=== PATIENT | female | born 1995 | race Caucasian/White ===

== ENCOUNTER 2024-02-04 14:59 | Inpatient (IN) | payer BC, MEDICAID ==
[~2024-02-04] VITALS: Ht 195.6 cm; Wt 77.1 kg
[2024-02-04] MEDS ORDERED: HYDR-4075 PO (15:21)
[2024-02-04] MEDS ORDERED: ONDANSETRON 4 MG/2 ML VIAL ONE (15:26)
[2024-02-04] MEDS ORDERED: HYDROMORPHONE 1 MG/1 ML DISP.SYRIN ONE ×3 (15:26→18:58)
[2024-02-04] MEDS: ONDANSETRON 4 MG/2 ML VIAL IV ONE (15:27)
[2024-02-04] MEDS: HYDROMORPHONE 1 MG/1 ML DISP.SYRIN IV ONE ×3 (15:27→18:59)
[2024-02-04 15:32] LABS: BASOPHILS % (AUTO) 0.3 % (0.0-2.0); EOSINOPHILS % (AUTO) 0.9 % (0.0-7.0); HEMATOCRIT 50.9 % (31.2-41.9); HEMOGLOBIN 17.1 g/dL (10.9-14.3); LYMPHOCYTES # (AUTO) 1.9 K/uL (0.8-4.8); MEAN CORPUSCULAR HEMOGLOBIN 28.7 uug (24.7-32.8); MEAN CORPUSCULAR HGB CONC 34 g/dL (32.3-35.6); MEAN CORPUSCULAR VOLUME 85.7 fL (75.5-95.3); MONOCYTES # (AUTO) 0.7 K/uL (0.1-1.30); MONOCYTES % (AUTO) 13.9 % (0.0-11.0); NEUTROPHILS # (AUTO) 2.3 K/uL (1.8-8.9); NEUTROPHILS % (AUTO) 46.9 % (38.5-71.5); PLATELET COUNT (AUTO) 189 K/uL (179-408); RED BLOOD CELL COUNT(AUTO) 5.95 MIL/uL (3.63-4.92); RED CELL DISTRIBUTION WIDTH 13.4 % (12.3-17.7); WHITE BLOOD COUNT (AUTO) 4.9 K/uL (3.8-11.8)
[2024-02-04 15:33] LABS: DIFFERENTIAL COMMENT 1
[2024-02-04] MEDS: IV NORMAL SALINE 1000 ML BAG IV ONE ×2 (15:35→18:59)
[2024-02-04] MEDS ORDERED: diphenhydrAMINE 50 MG/1 ML VIAL ONE (15:37)
[2024-02-04] MEDS ORDERED: LORAZEPAM 2 MG/1 ML VIAL ONE (15:38)
[2024-02-04 15:42] LABS: CALCIUM 9.2 mg/dL (8.5-10.1); CARBON DIOXIDE 19 mmol/L (21-32); CHLORIDE 96 mmol/L (98-107); CREATININE 1.1 mg/dL (0.6-1.3); GLUCOSE 96 mg/dL (74-106); POTASSIUM 3.3 mmol/L (3.5-5.1); SODIUM SERUM 137 mmol/L (136-145); UREA NITROGEN, BLOOD 13 mg/dL (7-18)
[2024-02-04] MEDS: LORAZEPAM 2 MG/1 ML VIAL IV ONE (15:44)
[2024-02-04] MEDS: diphenhydrAMINE 50 MG/1 ML VIAL IV ONE (15:44)
[2024-02-04 15:52] LABS: PREGNANCY TEST SERUM QUAN < 1 miul/L (0-6)
[2024-02-04 15:55] LABS: ALANINE AMINOTRANSFERASE 20 U/L (14-59); ALBUMIN 3.9 g/dL (3.4-5.0); ALKALINE PHOSPHATASE 83 U/L (50-136); ASPARTATE AMINOTRANSFERASE 25 U/L (15-37); BILIRUBIN,DIRECT 0.3 mg/dL (0.0-0.2); BILIRUBIN,TOTAL 0.7 mg/dL (0.2-1.0); LIPASE 34 U/L (16-77); TOTAL PROTEIN, SERUM 8.4 g/dL (6.4-8.2)
[2024-02-04] MEDS ORDERED: AZITHROMYCIN 250 MG TABLET ONE (18:03)
[2024-02-04] MEDS ORDERED: CEFTRIAXONE /D5W 50ML IVPB **ER PYXIS IV ONE (18:03)
[2024-02-04] MEDS: AZITHROMYCIN 250 MG TABLET PO ONE (18:49)
[2024-02-04] MEDS: CEFTRIAXONE 1 G in IV DEXTROSE 5% 50 ML IV ONE (18:49)
[2024-02-04] MEDS ORDERED: REMEDY ESSENTIAL ZINC PASTE 113 GM TP PRN (20:00)
[2024-02-04] MEDS ORDERED: IV NS 1000 ML 1,000 ML IV PRN (20:00)
[2024-02-04] MEDS ORDERED: ACETAMINOPHEN 325 MG TABLET ONE (21:24)
[2024-02-04] MEDS: ACETAMINOPHEN 325 MG TABLET PO PRN (21:26)
[2024-02-04] MEDS ORDERED: METRONIDAZOLE 500 MG/NS 100ML 100 ML IV ONE (21:29)
[2024-02-04] MEDS: METRONIDAZOLE 500 MG/NS 100ML 500 MG in PREMIXED 1 EACH IV SCH (21:39)
[2024-02-04] MEDS ORDERED: levoFLOXacin 500 MG/D5W 100 ML ONE (23:01)
[2024-02-04] MEDS: levoFLOXacin 500 MG/D5W 500 MG in PREMIXED 1 EACH IV SCH (23:08)
[2024-02-04] MEDS: ONDANSETRON 4 MG/2 ML VIAL IV PRN (23:09)
[2024-02-04] MEDS: HYDROMORPHONE 1 MG/1 ML DISP.SYRIN IV PRN (23:24)
[2024-02-05] MEDS: GUAIFENESIN/DEXTROMETHORPHAN 5 ML UDC PO PRN (03:16)
[2024-02-05 03:45] VITALS: BP 142/61; TEMP 97.8; O2SAT 98
[2024-02-05 05:33] VITALS: BP 128/91; TEMP 97.8; O2SAT 98
[2024-02-05 06:19] VITALS: BP 128/91; TEMP 97.8; O2SAT 98
[2024-02-05 06:26] LABS: BASOPHILS % (AUTO) 0.4 % (0.0-2.0); EOSINOPHILS % (AUTO) 0.6 % (0.0-7.0); HEMATOCRIT 38.1 % (31.2-41.9); HEMOGLOBIN 13.1 g/dL (10.9-14.3); LYMPHOCYTES # (AUTO) 1.7 K/uL (0.8-4.8); LYMPHOCYTES % (AUTO) 55.1 % (20.5-51.5); MEAN CORPUSCULAR HEMOGLOBIN 28.9 uug (24.7-32.8); MEAN CORPUSCULAR HGB CONC 35 g/dL (32.3-35.6); MEAN CORPUSCULAR VOLUME 83.8 fL (75.5-95.3); MONOCYTES # (AUTO) 0.5 K/uL (0.1-1.30); NEUTROPHILS # (AUTO) 0.9 K/uL (1.8-8.9); NEUTROPHILS % (AUTO) 27.9 % (38.5-71.5); PLATELET COUNT (AUTO) 159 K/uL (179-408); RED BLOOD CELL COUNT(AUTO) 4.55 MIL/uL (3.63-4.92); WHITE BLOOD COUNT (AUTO) 3.1 K/uL (3.8-11.8)
[2024-02-05 06:43] LABS: CALCIUM 7.4 mg/dL (8.5-10.1); CREATININE 0.7 mg/dL (0.6-1.3); DIFFERENTIAL COMMENT 1; MAGNESIUM 1.6 mg/dL (1.8-2.4); PHOSPHOROUS 2.2 mg/dL (2.5-4.9); POTASSIUM 3.6 mmol/L (3.5-5.1)
[2024-02-05] MEDS: PANTOPRAZOLE SODIUM 40 MG VIAL IV SCH (08:31)
[2024-02-05] MEDS ORDERED: ACETAMINOPHEN 650 MG SUPP.RECT RC PRN (09:15)
[2024-02-05] MEDS: POTASSIUM PHOSPHATE MM 7.5 MMOL in IV NORMAL SALINE 97.5 ML IV ONE (09:31)
[2024-02-05] MEDS: MAGNESIUM SULFATE/D5W 100 ML IV SCH (09:31)
[2024-02-05] MEDS: ONDANSETRON 4 MG/2 ML VIAL IV PRN (10:36)
[2024-02-05 11:24] LABS: *BILIRUBIN,URIN NEGATIVE (NEGATIVE); *BLOOD, URINE 3+ (NEGATIVE); *CLARITY,URINE CLEAR (CLEAR); *COLOR,URINE YELLOW (YELLOW); *KETONES,URINE 4+ (NEGATIVE); *PROTEIN,URINE NEGATIVE (NEGATIVE); *URINE HCG, QUAL NEGATIVE (NEGATIVE); *UROBILINOGEN,URINE 0.2 E.U./dl (NORMAL); LEUKOCYTE ESTERASE ,URINE NEGATIVE (NEGATIVE); NITRITE, URINE NEGATIVE (NEGATIVE); PH,URINE 5.5 (5.0-8.0); UGLUCOSE NEGATIVE (NEGATIVE)
[2024-02-05 11:32] LABS: BACTERIA,URINE MODERATE /HPF (NONE SEEN); RBC,URINE 80-100 /HPF (0-3); SQUAMOUS EPITHELIAL CELL,UR MODERATE /HPF (NONE SEEN); WBC,URINE 0-3 /HPF (0-3)
[2024-02-05 11:34] VITALS: BP 124/81; TEMP 97.6; O2SAT 98
[2024-02-05] MEDS: IV D5/ 0.9% NACL 1,000 ML IV PRN (12:21)
[2024-02-05] MEDS: HYDROMORPHONE 2 MG/1 ML DISP.SYRIN IV PRN (12:22)
[2024-02-05 12:25] LABS: BAND % (MANUAL) 3 % (0-10); EOSINOPHILS % (MANUAL) 1 % (0-8); LYMPHOCYTES % (MANUAL) 52 % (20-40); MONOCYTES % (MANUAL) 17 % (2-10); NEUTROPHILS % (MANUAL) 27 % (42-75); PLATELET ESTIMATE DECREASED
[2024-02-05 16:00] VITALS: BP 116/81; TEMP 97.8; O2SAT 96
[2024-02-05 21:48] VITALS: BP 118/80; TEMP 97.7; O2SAT 95
[2024-02-06 06:28] VITALS: BP 111/79; TEMP 97.8; O2SAT 95
[2024-02-06 11:50] VITALS: BP 123/74; TEMP 97.9; O2SAT 99
[2024-02-06 18:08] VITALS: BP 110/62; TEMP 98
[2024-02-06 19:00] VITALS: BP 112/59; TEMP 98.2; O2SAT 99
[2024-02-07 04:30] VITALS: BP 112/74; TEMP 97.3
[2024-02-07 04:45] VITALS: BP 112/74; TEMP 97.3; O2SAT 97
[2024-02-07 07:02] LABS: BASOPHILS % (AUTO) 0.5 % (0.0-2.0); LYMPHOCYTES # (AUTO) 1.8 K/uL (0.8-4.8); LYMPHOCYTES % (AUTO) 52.8 % (20.5-51.5); MEAN CORPUSCULAR HEMOGLOBIN 29.2 uug (24.7-32.8); MEAN CORPUSCULAR HGB CONC 35 g/dL (32.3-35.6); MEAN CORPUSCULAR VOLUME 83.6 fL (75.5-95.3); MONOCYTES # (AUTO) 0.4 K/uL (0.1-1.30); MONOCYTES % (AUTO) 12.3 % (0.0-11.0); NEUTROPHILS # (AUTO) 1.1 K/uL (1.8-8.9); NEUTROPHILS % (AUTO) 33.4 % (38.5-71.5); PLATELET COUNT (AUTO) 161 K/uL (179-408); RED BLOOD CELL COUNT(AUTO) 4.79 MIL/uL (3.63-4.92); RED CELL DISTRIBUTION WIDTH 13.4 % (12.3-17.7); WHITE BLOOD COUNT (AUTO) 3.4 K/uL (3.8-11.8)
[2024-02-07 07:26] LABS: DIFFERENTIAL COMMENT 1
[2024-02-07 07:27] LABS: CALCIUM 8.5 mg/dL (8.5-10.1); CREATININE 0.7 mg/dL (0.6-1.3); MAGNESIUM 1.7 mg/dL (1.8-2.4); PHOSPHOROUS 2.8 mg/dL (2.5-4.9); POTASSIUM 3.3 mmol/L (3.5-5.1)
[2024-02-07] MEDS: MAGNESIUM OXIDE 400 MG TABLET PO ONE (10:39)
[2024-02-07] MEDS: POTASSIUM CHLORIDE 20 MEQ TAB.PRT.SR PO ONE (10:39)
[2024-02-07 19:30] VITALS: BP 142/84; TEMP 98.6; O2SAT 96
[2024-02-07] MEDS: HYDROMORPHONE 1 MG/1 ML DISP.SYRIN IV PRN (20:30)
[2024-02-08 06:00] VITALS: BP 130/79; TEMP 98; O2SAT 97
[2024-02-08 07:54] LABS: BASOPHILS % (AUTO) 0.3 % (0.0-2.0); EOSINOPHILS # (AUTO) 0.1 K/uL (0.0-0.7); EOSINOPHILS % (AUTO) 1.9 % (0.0-7.0); HEMATOCRIT 40.1 % (31.2-41.9); HEMOGLOBIN 13.9 g/dL (10.9-14.3); LYMPHOCYTES # (AUTO) 1.7 K/uL (0.8-4.8); LYMPHOCYTES % (AUTO) 47.9 % (20.5-51.5); MEAN CORPUSCULAR HEMOGLOBIN 28.9 uug (24.7-32.8); MEAN CORPUSCULAR HGB CONC 35 g/dL (32.3-35.6); MEAN CORPUSCULAR VOLUME 83.3 fL (75.5-95.3); MONOCYTES # (AUTO) 0.4 K/uL (0.1-1.30); NEUTROPHILS # (AUTO) 1.4 K/uL (1.8-8.9); NEUTROPHILS % (AUTO) 38.9 % (38.5-71.5); PLATELET COUNT (AUTO) 191 K/uL (179-408); RED BLOOD CELL COUNT(AUTO) 4.81 MIL/uL (3.63-4.92); RED CELL DISTRIBUTION WIDTH 13.4 % (12.3-17.7); WHITE BLOOD COUNT (AUTO) 3.5 K/uL (3.8-11.8)
[2024-02-08 08:02] LABS: DIFFERENTIAL COMMENT 1
[2024-02-08 08:16] LABS: ALBUMIN 3.1 g/dL (3.4-5.0); BILIRUBIN,DIRECT 0.2 mg/dL (0.0-0.2); BILIRUBIN,TOTAL 0.6 mg/dL (0.2-1.0); CALCIUM 8.7 mg/dL (8.5-10.1); CREATININE 0.7 mg/dL (0.6-1.3); MAGNESIUM 1.8 mg/dL (1.8-2.4); PHOSPHOROUS 2.8 mg/dL (2.5-4.9); POTASSIUM 3.4 mmol/L (3.5-5.1); TOTAL PROTEIN, SERUM 6.7 g/dL (6.4-8.2)
[2024-02-08] MEDS: POTASSIUM CHLORIDE 20 MEQ TAB.PRT.SR PO ONE (10:19)
[2024-02-08] MEDS ORDERED: ACET650S13 RC (11:42)
[2024-02-08] MEDS ORDERED: FAMO-132 PO (11:42)
[2024-02-08] MEDS ORDERED: METR500T PO (11:42)
[2024-02-08] MEDS ORDERED: LEVO500T90 PO (11:42)
[2024-02-08] MEDS ORDERED: HYDR-4209 PO (11:42)
== END 2024-02-08 13:11 | disposition home or self-care (01) | DRG 248 ==
LOC: ER 14:59 → MEDSURG3 21:42
PROVIDERS: ADMIT Internal Medicine; ATTEND Internal Medicine
DX: A04.9 Bacterial intestinal infection, unspecified (principal); E86.0 Dehydration; F41.9 Anxiety disorder, unspecified; N39.0 Urinary tract infection, site not specified; Z88.0 Allergy status to penicillin; Z88.2 Allergy status to sulfonamides; Z90.49 Acquired absence of other specified parts of digestive tract; G89.4 Chronic pain syndrome; Z87.898 Personal history of other specified conditions; Z98.890 Other specified postprocedural states; E87.6 Hypokalemia; F32.A Depression, unspecified; Z87.39 Personal history of other diseases of the musculoskeletal system and connective tissue; K92.1 Melena; N83.512 Torsion of left ovary and ovarian pedicle
CPT/HCPCS: 36415; 70030-TC; 71045; 76856; 83605; 83690; 83735; 84100; 84484; 84703; 85025; 85730; 86140; 87040; A4663; G0378; J0696; J1171; J1200; J1956; J2060; J2405; J2470; J3475; J3490; J7040; J7042; J7070; Q0144